=== PATIENT | female | born 1970 | race Caucasian/White ===

== ENCOUNTER 2017-05-16 13:12 | Emergency (ER) | payer BC ==
[~2017-05-16] VITALS: Ht 167.6 cm; Wt 75.0 kg
[~2017-05-16 13:12] MED LIST: HYDR25TA35 PO; LISI10TA3 PO; LITH300C2 PO; SERT-132 PO; ZOFR4TAB3 SL
[2017-05-16 13:14] VITALS: BP 189/97; PULSE 89; RESP 16; TEMP 98.5; O2SAT 99
--- NOTE | 2017-05-16 13:58 | PD ---
HPI Chief Complaint: Cold / Flu Symptoms Time Seen by Provider: 13:57 Travel History International Travel<30 days: No Contact w/Intl Traveler<30days: No Traveled to known affect area: No History of Present Illness HPI 46 year old female presents to the emergency Department with 2 complaints. Her first complaint is chest tightness and wheezing 2 weeks, with cold symptoms, despite using her albuterol inhaler. History of asthma 3 years per patient. Denies COPD. History of tobacco use; denies currently. Reports nasal congestion, cough, sputum production. Denies chest pain, hemoptysis. Her second complaint is continued right hip pain 2 years. Reports history of right -sided sciatica. Denies new or recent injury. Reports pain radiates down her right leg. Pain is worse at night and in the mornings when she wakes up. Has been taking Tylenol for symptom management. Denies paresthesias, loss of sensation, decreased range of motion, decreased strength to bilateral lower extremities. Denies fever, vomiting. Denies IV drug use or cancer. Denies encopresis, incontinence, saddle anesthesias. Reports using a cane for support at times; does not currently have a cane with her. Allergies to Wellbutrin. Uses urgent care as primary care provider. Has no other medical complaints. No other modifying factors or associated signs and symptoms. PFSH Past Medical History Arthritis: Yes (BACK) Autoimmune Disease: Yes (LYMPHADENOPATHY) Bipolar Disorder: Yes (BIPOLAR/MANIC) Anxiety: Yes Depression: Yes Cardiovascular Problems: Yes (HTN) Diminished Hearing: No Hypertension: Yes Neurologic: No Menopausal: Yes : 3 Para: 3 Miscarriage: 0 : 0 Tubal Ligation: Yes Past Surgical History Cholecystectomy: Yes Tonsillectomy: Yes (T&A) Social History Alcohol Use: Yes (RARELY) Tobacco Use: No Substance Use: No Allergies-Medications (Allergen,Severity, Reaction): Coded Allergies: Wellbutrin (Verified Allergy, Severe, 05/16/17) Reported Meds & Prescriptions Reported Meds & Active Scripts Active Azithromycin 500 Mg Tab 500 Mg PO DAILY Robaxin (Methocarbamol) 500 Mg Tab 500 Mg PO QID PRN Ibuprofen 800 Mg Tab 800 Mg PO Q6HR PRN Deltasone (Prednisone) 20 Mg Tab 40 Mg PO DAILY 4 Days start 05/17/2017 Proair Hfa 8.5 GM Inh (Albuterol Sulfate) 90 Mcg/Act Aer 2 Puff INH Q4-6H PRN 108 mcg/actuation Review of Systems Except as stated in HPI: all other systems reviewed are Neg Physical Exam Narrative GENERAL: Well-nourished, well-developed female patient, in no acute distress; afebrile, nontoxic-appearing SKIN: Warm and dry. HEAD: Atraumatic. Normocephalic. EYES: Pupils equal and round. No scleral icterus. No injection or drainage. ENT: Mucosa pink and moist. No erythema or exudates. No uvular edema. No uvular , palatal, or tonsillar deviation. Airway patent. Nares without nasal blood, purulent drainage. EARS: Bilateral pinnae and external canals appear within normal limits. Bilateral tympanic membranes without erythema, dullness or perforation. NECK: Trachea midline. No lymphadenopathy. CARDIOVASCULAR: Regular rate and rhythm. No murmur appreciated. RESPIRATORY: No accessory muscle use. Lungs with diffuse Wheezing throughout to auscultation. Breath sounds equal bilaterally. No retractions or tachypnea. Audible wheezing noted. GASTROINTESTINAL: Abdomen soft, non-tender, nondistended. Hepatic and splenic margins not palpable. Bowel sounds are active 4 quadrants. MUSCULOSKELETAL: Bilateral lower extremities supple and non-tense with 2+ pedal pulses and sensory intact; with full range of motion and 5/5 strength. 2 + DTRs bilaterally. Active dorsiflexion and extension of bilateral feet. Bilateral straight leg raise is negative for low back pain. Ambulatory in room with normal gait. Sitting up in bed at 90. No obvious deformities. No clubbing. No cyanosis. No edema. BACK: No midline point tenderness on palpation of the lumbar spine. Tenderness on palpation of right lumbar iliosacral area. No obvious deformities. NEUROLOGICAL: Awake and alert. Oriented 3. No obvious cranial nerve deficits. Motor grossly within normal limits. Normal speech. Moves all extremities. 5/5 strength to all extremities. PSYCHIATRIC: Appropriate mood and affect; insight and judgment normal. Data Data Last Documented VS Vital Signs Date Time Temp Pulse Resp B/P Pulse Ox O2 Delivery O2 Flow Rate FiO2 05/16/17 16:37 16 05/16/17 13:22 98 Room Air 05/16/17 13:14 98.5 89 189/97 Orders Prednisone (Deltasone) (05/16/17 14:00) Albuterol-Ipratropium Neb (Duoneb Neb) (05/16/17 14:00) Chest, Single Ap (05/16/17 13:53) Ketorolac Inj (Toradol Inj) (05/16/17 14:00) Orphenadrine Inj (Norflex Inj) (05/16/17 14:00) Albuterol-Ipratropium Neb (Duoneb Neb) (05/16/17 16:00) [facility] Medical Decision Making Medical Screen Exam Complete: Yes Emergency Medical Condition: Yes Medical Record Reviewed: Yes Differential Diagnosis Bronchitis, asthma exacerbation, COPD, arthritis, sciatica Narrative Course 46-year-old female with history of asthma with asthma exacerbation. History of right-sided sciatica 2 years with continued right-sided sciatic pain; physical exam consistent with right-sided low back pain with sciatica. Patient is in no acute distress and oxygen saturation is 97% on room air. Audible wheezing noted. Diffuse wheezing throughout on auscultation of the lungs. DuoNeb 3 and prednisone ordered. Toradol and Norflex administered in the ER. 1457: Chest x-ray with no acute findings. 1525: Patient continues to complain about chest tightness and wheezing. Lungs are with diffuse wheezing throughout on auscultation. Patient does not appear to be in any acute distress and respiratory rate is in the low 20s. Audible wheezing noted. Oxygen saturation is 97% on room air. I discussed the patient with Dr. Kenny, attending physician, and the plan is to monitor the patient for 30 minutes and administer another DuoNeb 3 if symptoms persist. 1548: Mild wheezing on auscultation of bilateral lung terrell; vast improvement since I listened last. Patient reports improvement in symptoms. I will order 3 more DuoNebs and reevaluate. 1701: Patient reports much more improvement in symptoms. She denies chest tightness and wheezing. Lungs are clear and equal throughout with very minimal wheezing noted to right upper lobe. She feels comfortable going home and is requesting to be discharged. Air inhaler, Deltasone, ibuprofen, Robaxin, azithromycin prescribed for home. Patient verbalizes understanding and agreement with treatment plan. Patient is medically cleared and stable for discharge. Discussed reasons to return to the emergency department. Instructed patient to follow up with primary care provider. Patient agrees with treatment plan. The patients vital signs are stable and the patient is stable for outpatient follow-up and treatment. Patient discharged home, stable and in no acute distress. Diagnosis Primary Impression: Asthma exacerbation Additional Impressions: URI (upper respiratory infection) Qualified Code: J06.9 - Upper respiratory tract infection, unspecified type Right-sided low back pain with sciatica Qualified Code: M54.41 - Right-sided low back pain with right-sided sciatica, unspecified chronicity Referrals: Primary Care Physician Patient Instructions: Acute Low Back Pain (ED), Asthma (ED), General Instructions, Safe Use of Cough and Cold Medicines (ED), Sciatica (ED), Upper Respiratory Infection (ED) Additional Instructions: Use albuterol inhaler as needed for shortness of breath and/or wheezing Take oral steroids as prescribed and complete full course Avoid asthma triggers such as smoking cigarettes, second hand smoke, dust, known allergens Follow-up with primary care provider Return to emergency department immediately with worsening of symptoms Tylenol or ibuprofen as directed and as needed for pain Robaxin as prescribed and as needed for muscle spasms Heating pad and/or ice to affected area to reduce pain Avoid aggravating activities; increase activity as tolerated Follow-up with primary care provider Return to emergency department immediately with worsening of symptoms Med/Other Pt SpecificInfo: Prescription(s) given Scripts Azithromycin 500 Mg [id number] Mg PO DAILY #5 TAB Ref 0 Prov:Estella Delgadillo 05/16/17 Methocarbamol (Robaxin)500 Mg [id number] Mg PO QID PRN (MUSCLE SPASM) #30 TAB Ref 0 Prov:Estella DelgadilloP 05/16/17 Ibuprofen 800 Mg [id number] Mg PO Q6HR PRN (PAIN) #30 TAB Ref 0 Prov:Estella DelgadilloP 05/16/17 Prednisone (Deltasone)20 Mg Tab40 Mg PO DAILY 4 Days Ref 0 start 05/17/2017 Prov:Estella Delgadillo 05/16/17 Albuterol 8.5 GM Inh (Proair Hfa 8.5 GM Inh)90 Mcg/Act Aer2 Puff INH Q4-6H PRN ( SHORTNESS OF BREATH) #1 INHALER Ref 0 108 mcg/actuation Prov:Estella Delgadillo 05/16/17 Disposition: 01 DISCHARGE HOME Condition: Stable Estella Delgadillo May 16, 2017 13:58
[2017-05-16] MEDS ORDERED: KETOROLAC TROMETHAMINE 60 MG/2 ML (IM) VIAL IM ONE (14:00)
[2017-05-16] MEDS ORDERED: ORPHENADRINE INJ 60 MG/2 ML AMP IM ONE (14:00)
[2017-05-16] MEDS ORDERED: predniSONE 20 MG TAB PO ONE (14:00)
[2017-05-16] MEDS ORDERED: ALBUAER3 INH (14:11)
[2017-05-16] MEDS ORDERED: IBUP800T23 PO (14:11)
[2017-05-16] MEDS ORDERED: ROBA500T PO (14:11)
[2017-05-16] MEDS ORDERED: PRED-503 PO (14:11)
[2017-05-16] MEDS ORDERED: AZIT500T2 PO (14:12)
[2017-05-16] MEDS: RESP: ALBUTEROL 2.5 MG/IPRATROPIUM 0.5 MG NEB (SCH) INH ×4 (14:31→16:21)
--- NOTE | 2017-05-16 14:40 | RADRPT ---
EXAM DATE/TIME: 05/16/2017 14:19 [facility] COMPARISON: CHEST SINGLE AP, October 13, 2016, 19:50. INDICATIONS : Wheezing, difficulty breathing for 1 week MEDICAL HISTORY : None. SURGICAL HISTORY : None. ENCOUNTER: Initial ACUITY: 1 week PAIN SCORE: 0/10 LOCATION: Bilateral chest FINDINGS: A single view of the chest demonstrates the lungs to be symmetrically aerated without evidence of mas s, infiltrate or effusion. The cardiomediastinal contours are unremarkable. Osseous structures are intact. CONCLUSION: Normal examination. Adonay Jaimes MD on May 16, 2017 at 14:37 Board Certified Radiologist. This report was verified electronically.
[2017-05-16 16:37] VITALS: RESP 16
== END 2017-05-16 17:37 | disposition home or self-care (01) ==
LOC: NEPD 13:12
DX: J45.901 Unspecified asthma with (acute) exacerbation (principal); J06.9 Acute upper respiratory infection, unspecified; M54.41 Lumbago with sciatica, right side; R59.1 Generalized enlarged lymph nodes; F31.9 Bipolar disorder, unspecified; F41.9 Anxiety disorder, unspecified; I10 Essential (primary) hypertension; J45.909 Unspecified asthma, uncomplicated; Z79.899 Other long term (current) drug therapy
CPT/HCPCS: 71010; 94640; 94664; 96372; 99285; J1885; J2360; J7512